=== PATIENT | male | born 1975 | race African-American/Black ===

== ENCOUNTER 2022-03-26 17:25 | Emergency (ER) | payer SELFPAY ==
[2022-03-26 17:31] VITALS: TEMP 97.6; BMI 32.8
[2022-03-26 18:35] LABS: BASO % 0.6 % (0-2.0); EOS % 1.7 % (0-4.5); HEMATOCRIT 42.9 % (35.4-49); HEMOGLOBIN 14.3 GM/dL (11.7-16.9); LYMPH % 30.3 % (8-40); MCH 28.9 pg (25.7-33.7); MCHC 33.3 g/dl (32.0-35.9); MEAN CELL VOLUME 86.7 fl (80-96); MEAN PLT VOLUME 8.2 fl (7.5-11.1); MONO % 7.9 % (3.8-10.2); NEUT % 59.5 % (42.8-82.8); PLATELET COUNT 327 10^3/uL (134-434); RBC 4.95 M/mm3 (4.00-5.60); RDW 13.3 % (11.9-15.9); WHITE BLOOD COUNT 4.6 K/mm3 (4.0-10.0)
[2022-03-26 19:01] LABS: CALCIUM 9.5 mg/dL (8.5-10.1)
[2022-03-26 19:02] LABS: ALBUMIN 4.2 g/dl (3.4-5.0); BLOOD UREA NITROGEN 10.7 mg/dL (7-18)
[2022-03-26 19:07] LABS: BILIRUBIN,TOTAL 0.8 mg/dL (0.2-1); TOT PROT 8.1 g/dl (6.4-8.2)
[2022-03-26 20:52] LABS: EPI CELLS 6 /uL (0-25.1); HYALINE CASTS 0 /uL (0-3.1); URINE APPEARANCE CLEAR; URINE BACTERIA 160 /uL (0-1359); URINE BILIRUBIN NEGATIVE (NEGATIVE); URINE COLOR YELLOW; URINE GLUCOSE (UA) NEGATIVE (NEGATIVE); URINE KETONE NEGATIVE (NEGATIVE); URINE LEUK ESTERASE NEGATIVE (NEGATIVE); URINE NITRITE NEGATIVE (NEGATIVE); URINE PROTEIN NEGATIVE (NEGATIVE); URINE RBC 53 /uL (0-23.9); URINE WBC 10 /uL (0-25.8)
[2022-03-26] MEDS ORDERED: MAG HYDROX/AL HYDROX/SIMETH 30 ML UNIT-DOSE CUP PO ONE (22:06)
[2022-03-26] MEDS ORDERED: FAMOTIDINE 10 MG TABLET PO ONE (22:06)
[2022-03-26] MEDS ORDERED: FAMOTIDINE 20 MG TABLET ONE (22:08)
[2022-03-26 22:47] VITALS: BP 184/106; PULSE 61
[2022-03-26] MEDS ORDERED: amLODIPine BESYLATE 5 MG TABLET (FP) PO ONE (23:06)
[2022-03-26] MEDS ORDERED: amLODIPine BESYLATE 5 MG TABLET (FP) ONE (23:07)
== END 2022-03-26 23:35 | disposition home or self-care (01) ==
LOC: JER 17:25
DX: I10 Essential (primary) hypertension (principal)
CPT/HCPCS: 36415; 71046-TC-FY; 80053; 81003; 84484; 85025; 87086; 93005; 93010; 99284-25